=== PATIENT | female | born 1990 | race Asian ===

== ENCOUNTER 2019-06-05 00:04 | Emergency (ER) | payer OTHER ==
[~2019-06-05] VITALS: Ht 162.6 cm; Wt 104.8 kg
--- NOTE | 2019-06-05 00:33 | NUR ---
Pt present to ed c/o diffuse abd pain and lower back painx4 days. States intermittent diarrhea and nausea. Denies nausea at this time. Pt denies any relevant medical hx. Denies any further gu s/s. Monitoring applied. Provided ua and sent to lab. at bedside for assessment.
[2019-06-05 00:47] LABS: MICROSCOPIC AUTO
[2019-06-05 00:54] LABS: CULTURE INDICATED? YES
[2019-06-05 00:58] LABS: BASOPHILS # (AUTO) 0.05 x10^3/uL (0-0.1); BASOPHILS % (AUTO) 0 % (0-1); EOSINOPHILS # (AUTO) 0.38 x10^3/uL (0-0.4); EOSINOPHILS % (AUTO) 3 % (1-7); LYMPHOCYTES # (AUTO) 3.52 x10^3/uL (1-3.4); LYMPHOCYTES % (AUTO) 26 % (22-44); MD NO; MEAN CORPUSCULAR HEMOGLOBIN 25.5 pg (27.0-34.8); MEAN CORPUSCULAR HGB CONC 32.5 g/dL (32.4-35.8); MEAN CORPUSCULAR VOLUME 78.5 fL (80-100); MEAN PLATELET VOLUME 9.8 fL (7.4-10.4); MONOCYTES # (AUTO) 0.77 x10^3/uL (0.2-0.8); MONOCYTES % (AUTO) 6 % (2-9); NEUTROPHILS # (AUTO) 8.64 x10^3/uL (1.8-6.8); NEUTROPHILS % (AUTO) 65 % (42-75); PLATELET COUNT 368 x10^3/uL (130-400); RED BLOOD COUNT 5.11 x10^6/uL (3.82-5.3); RED CELL DISTRIBUTION WIDTH 14.3 % (9.6-15.2)
[2019-06-05 01:05] LABS: ALANINE AMINOTRANSFERASE 29 U/L (12-78); ALBUMIN 3.5 g/dL (3.4-5.0); ANION GAP 8 mmol/L (5-15); CALCIUM 9.3 mg/dL (8.5-10.1); CHLORIDE 105 mmol/L (98-107); CREATININE 0.85 mg/dL (0.55-1.02)
[2019-06-05] MEDS ORDERED: CIPROFLOXACIN 500 MG TABLET ONE (01:09)
[2019-06-05 01:10] LABS: ALKALINE PHOSPHATASE 86 U/L (45-117); BILIRUBIN,TOTAL 0.5 mg/dL (0.2-1.0); TOTAL PROTEIN 8.7 g/dL (6.4-8.2)
[2019-06-05] MEDS ORDERED: CIPROFLOXACIN 500 MG TABLET PO ONE (01:30)
[2019-06-05 02:03] VITALS: BP 129/68
== END 2019-06-05 02:11 | disposition home or self-care (01) ==
LOC: ED 02:05
DX: N30.00 Acute cystitis without hematuria (principal); R06.02 Shortness of breath; R19.7 Diarrhea, unspecified; M54.9 Dorsalgia, unspecified
CPT/HCPCS: 36415; 74021; 80053; 81001; 83690; 84703; 85025; 87086; 99284